=== PATIENT | male | born 1960 ===

== ENCOUNTER 2018-06-24 12:17 | Outpatient (CLI) | payer MEDICARE ==
--- NOTE | 2018-06-24 14:16 | ULT ---
VENOUS DUPLEX SONOGRAM RIGHT LOWER EXTREMITY: History: Right leg pain and edema. FINDINGS: Internal echoes and lack of compressibility involve the greater saphenous vein. Good color and spectr al doppler flow within the common femoral and femoral veins, the deep femoral, popliteal, and posteri or tibial veins. IMPRESSION: 1. DVT limited through the greater saphenous vein. Findings were called to Jessica Calvert at 1314 hours. Findings were also relayed to the patient, along wi th follow up instructions as per Jessica Calvert. Code CR POS: [id number]
== END 2018-06-24 12:18 | disposition home or self-care (01) ==
LOC: ULT 12:17
DX: M79.604 Pain in right leg (principal); M79.662 Pain in left lower leg; I82.811 Embolism and thrombosis of superficial veins of right lower extremity

== ENCOUNTER 2018-11-24 19:30 | Outpatient (CLI) | payer MEDICARE | END 2018-11-24 19:31 | disposition home or self-care (01) | LOC: SLEEPLAB 19:30 | PROVIDERS: ATTEND Internal Medicine | DX: G47.33 Obstructive sleep apnea (adult) (pediatric) (principal); G47.61 Periodic limb movement disorder | CPT/HCPCS: 95811 ==